=== PATIENT | female | born 1995 | race Caucasian/White ===

== ENCOUNTER 2021-03-03 13:13 | Inpatient (IN) | payer OTHER, BC ==
[2021-03-03] MEDS ORDERED: TERBUTALINE 1 MG/ML VIAL SQ PRN (13:56)
[2021-03-03] MEDS ORDERED: OXYTOCIN 10 UNIT/ML 1 ML VIAL IM PRN (13:56)
[2021-03-03] MEDS ORDERED: CARBOPROST TROMETHAMINE 250 MCG/ML 1 ML AMP IM PRN (13:56)
[2021-03-03] MEDS ORDERED: METHYLERGONOVINE 0.2 MG/ML 1 ML AMP IM PRN (13:56)
[2021-03-03] MEDS ORDERED: LIDOCAINE 0.5% (PF) 5 MG/ML (50 ML SDV) SQ PRN (13:56)
[2021-03-03] MEDS ORDERED: PENICILLIN G POTASSIUM 5,000,000 UNIT in DEXTROSE 5% IN WATER 100 ML IVPB STA ×2 (14:00)
[2021-03-03 14:11] LABS: Basophils % (A) 0 %; Eosinophils # (A) 0.2 k/uL (0-0.7); Eosinophils % (A) 2 %; HCT 37.6 % (34.0-46.0); HGB 12.8 gm/dL (11.4-16.0); Lymphocytes # (A) 2.1 k/uL (1.0-4.8); Lymphocytes % (A) 19 %; MCH 32.7 pg (25.0-35.0); Mean Platelet Volume 9.7; Monocytes # (A) 0.8 k/uL (0-1.0); Monocytes % (A) 7 %; Neutrophils # (A) 7.9 k/uL (1.3-7.7); Neutrophils % (A) 71 %; Platelet Count 196 k/uL (150-450); RBC 3.92 m/uL (3.80-5.40); RDW 13.7 % (11.5-15.5); WBC 11.2 k/uL (3.8-10.6)
[2021-03-03] MEDS: OXYTOCIN 30 UNITS/500 ML NS 30 UNIT in SALINE 1 500ML.BAG IV SCH (14:15)
[2021-03-03] MEDS: LACTATED RINGERS 1,000 ML IV SCH ×2 (14:21→22:14)
[2021-03-03] MEDS: PENICILLIN G POTASSIUM 2,500,000 UNIT in DEXTROSE 5% IN WATER 100 ML IVPB SCH ×4 (18:43→22:58)
[2021-03-03] MEDS ORDERED: fentaNYL (PF) 50 MCG/ML 5 ML AMP ONE (22:28)
[2021-03-03] MEDS ORDERED: SODIUM CHLORIDE 0.9% 100 ML BAG ONE (22:28)
[2021-03-03] MEDS ORDERED: ROPIVACAINE 5MG/ML 20ML VIAL ONE (22:28)
--- NOTE | 2021-03-04 01:46 | P.HPOB ---
History of Present Illness H&P Date: 03/04/21 Chief Complaint: My water broke at 10:30 this morning This is a 26-year-old female 1 para 0 EDC 03/03/2021 who presented at 40 weeks gestation with a history of her water breaking, clear fluid. She denied vaginal bleeding or uterine contractions. Fetus is been active throughout the . Past medical history significant for rheumatoid arthritis. Past surgical history eye surgery as a child. Current medications vitamins daily, Plaquenil 200 mg twice daily. ALLERGIES none known. Family history significant for hypertension, diabetes, myocardial infarction, pulmonary hypertension, thyroid issues. 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 history is significant for blood type A+, rubella status nonimmune. [place] strep cultures positive. Hepatitis B surface antigen, HIV testing, gonorrhea and chlamydia cultures, Pap smear, urine culture all negative. On exam patient is 5 foot 7 inches, 168 pounds, blood pressure 141/90. General physical exam is within normal limits. Cervix on admission is 1 cm dilated, 70% effaced, vertex presentation, posterior. heart tones reactive NST. Impression: 40 week intrauterine , spontaneous amniorrhexis, positive group B strep cultures. Plan: Penicillin G prophylaxis per hospital protocol. Oxytocin augmentation. Close maternal and surveillance. Anticipate normal spontaneous vaginal delivery. Review of Systems Constitutional: Reports as per HPI Past Medical History Past Medical History: Rheumatoid Arthritis (RA) History of Any Multi-Drug Resistant Organisms: None Reported Past Surgical History: No Surgical Hx Reported Past Anesthesia/Blood Transfusion Reactions: No Reported Reaction Past Psychological History: No Psychological Hx Reported Smoking Status: Never smoker - Past Family History Father Family Medical History: No Reported History Medications and Allergies Home Medications Medication Instructions Recorded Confirmed Type Aspirin 81 mg PO DAILY 03/03/21 03/03/21 History Hydroxychloroquine Sulfate 200 mg PO BID 03/03/21 03/03/21 History [Plaquenil] Pnv No.95/Ferrous Fum/Folic AC 1 each PO DAILY 03/03/21 03/03/21 History [ Multivitamin Tablet] Allergies Allergy/AdvReac Type Severity Reaction Status Date / Time No Known Allergies Allergy Verified 03/03/21 13:37 Exam Vital Signs Temp Pulse Resp BP Pulse Ox 03/03/21 14:35 97 F L 90 16 141/90 98 03/03/21 13:56 97 F L 90 16 141/90 98 Intake and Output 03/03/21 03/03/21 03/04/21 14:59 22:59 06:59 Output Total 1 Balance -1 Output: Emesis 1 Other: # Voids 1 3 Weight 76.204 kg See dictation under HPI please Results Result Diagrams: 03/03/21 14:01 Abnormal Lab Results - Last 24 Hours (Table) 03/03/21 Range/Units 14:01 WBC 11.2 H (3.8-10.6) k/uL Neutrophils # 7.9 H (1.3-7.7) k/uL Assessment and Plan Assessment: 40 week intrauterine , spontaneous amniorrhexis, positive group B strep cultures. Plan: Penicillin G prophylaxis per hospital protocol. Oxytocin augmentation per protocol. Close maternal and surveillance. Anticipate normal spontaneous vaginal delivery. Time with Patient: Less than 30
[2021-03-04] MEDS ORDERED: BENZOCAINE/MENTHOL SPRAY 1 GM/SPRAY AEROSOL TOPICAL PRN (01:48)
[2021-03-04] MEDS ORDERED: ZOLPIDEM 5 MG TAB PO PRN (01:48)
[2021-03-04] MEDS ORDERED: MEASLES-MUMPS-RUBELLA VACC/PF 12,500 UNIT/0.5 ML VIAL SQ ONE (01:48)
[2021-03-04] MEDS ORDERED: diphenhydrAMINE 25 MG CAP PO PRN (01:48)
[2021-03-04] MEDS ORDERED: SIMETHICONE 80 MG CHEWABLE PO PRN (01:48)
[2021-03-04] MEDS ORDERED: diphenhydrAMINE ELIXIR 25 MG/10 ML CUP PO PRN (01:48)
[2021-03-04] MEDS ORDERED: diphenhydrAMINE 50 MG/ML 1 ML VIAL IVP PRN ×2 (01:48)
[2021-03-04] MEDS ORDERED: HYDROCORTISONE 2.5% RECTAL CREAM 30 GM TUBE RECTAL PRN (01:48)
[2021-03-04] MEDS ORDERED: LANOLIN CREAM 5 GM TUBE TOPICAL PRN (01:48)
[2021-03-04] MEDS ORDERED: diphenhydrAMINE 50 MG CAP PO PRN (01:48)
--- NOTE | 2021-03-04 01:48 | P.PROBDLV ---
Vaginal Delivery Note - . Vaginal Delivery Note: This is a 26-year-old white female 1 para 0 EDC 03/03/2021 who presented at 40 weeks gestation. Patient complained of fluid leakage since 10:30 in the morning, clear fluid. She denied vaginal bleeding or uterine contractions. remarkable for positive group B strep cultures, rubella status nonimmune. Please see dictated history and physical for details. Penicillin G was started and titrated per hospital protocol, 3 doses given. Oxytocin was started and titrated per hospital protocol. Epidural was ultimately placed per her request. She progressed slowly but steadily through the first stage of labor and was judged to be completely dilated at 0100 hours. Perineal body was prepped and draped in usual sterile fashion. Infant's head delivered occiput anterior and restituted accordingly. There was a nuchal cord 1 that was reduced. The left or anterior shoulder was delivered from underneath the pubic symphysis at which time the oropharynx, nasopharynx, and external nares were all bulb suctioned. Patient was officially delivered of a liveborn female at 0113 hours. Umbilical cord was doubly clamped and ligated, she was handed to waiting nurses for evaluation where scores of 9 and 9 at one and 5 minutes respectively w ere given. Infant weighed 6 lbs. 12 oz. or 3070 g. Placenta delivered spontaneously with active management, it was inspected and noted to be intact with trivascular cord at 0115 hours. Uterus was massaged. Methergine was given 1 with immediate results. Careful inspection of the cervix, vagina, perineum, periurethral, and perirectal areas revealed a right labial laceration that was easily repaired in a running locking stitch of 3-0 repeat. All sponge needle and enhancement counts are correct at the end of the procedure. Patient and her family are allowed to begin the bonding experience in the LDR. Middle blood loss 350 mL
[2021-03-04] MEDS: IBUPROFEN 600 MG TAB PO SCH ×4 (02:57→20:08)
[2021-03-04] MEDS ORDERED: ONDANSETRON 4 MG/2 ML VIAL IVP STA (04:06)
[2021-03-04] MEDS: OXYTOCIN 30 UNITS/500 ML NS 30 UNIT in SALINE 1 500ML.BAG IV SCH (04:30)
[2021-03-04] MEDS: ACETAMINOPHEN TAB 325 MG TAB PO PRN (05:57)
[2021-03-04] MEDS: PENICILLIN G POTASSIUM 2,500,000 UNIT in DEXTROSE 5% IN WATER 100 ML IVPB SCH ×2 (07:38)
[2021-03-04] MEDS: HYDROXYCHLOROQUINE SULFATE 200 MG TAB PO SCH ×2 (08:24→20:08)
[2021-03-04] MEDS: SENNOSIDES-DOCUSATE SODIUM 1 EACH TAB PO SCH ×2 (08:24→20:09)
[2021-03-05] MEDS: ACETAMINOPHEN TAB 325 MG TAB PO PRN (01:11)
[2021-03-05] MEDS: IBUPROFEN 600 MG TAB PO SCH ×4 (02:59→21:47)
[2021-03-05] MEDS: SENNOSIDES-DOCUSATE SODIUM 1 EACH TAB PO SCH ×2 (07:38→21:47)
--- NOTE | 2021-03-05 08:46 | P.PNOBGVD ---
Subjective - Subjective Principal diagnosis: day #1 Interval history: She is a large right labial and vulvar hematoma that developed several hours after delivery. Has been monitored closely over the last 24 hours and appears stable. Patient reports improved mobility and discomfort throughout the night. The Minor catheter was left in through the night and ibuprofen and Tylenol are helping. She notes moderate lochia and bleeding from the site on the pad. She is breast-feeding successfully. Patient reports: Reports appetite normal, Reports pain well controlled, Denies voiding normally, Denies ambulating normally [place]: doing well, nursing well Objective - Latest Vital Signs Latest vital signs: Vital Signs Temp Pulse Resp BP 03/05/21 08:00 98 F 87 16 144/84 03/05/21 00:00 97.5 F L 86 16 141/82 03/04/21 16:00 97.5 F L 88 16 120/83 03/04/21 12:00 98.0 F 80 16 132/79 Intake and Output 03/04/21 03/05/21 03/05/21 22:59 06:59 14:59 Output Total 1000 950 Balance -1000 -950 Output: Urine 1000 950 Other: Voiding Method Indwelling Catheter Indwelling Catheter Indwelling Catheter - Exam Extremities: Present: normal. Absent: tenderness Abdomen: Present: normal appearance, soft Uterus: Present: normal, firm. Absent: tenderness Comments: Significant hematoma and ecchymoses involving the entire right labia and vulva tracking down into the perirectal area. This is firm but less tense than yesterday. Digital vaginal exam is normal with no evidence of hematoma tracking into the vaginal canal. A Minor catheter is in place on and there continues to be significant swelling of the anterior labia towards the midline. There is no active bleeding and suture line feels intact. 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 It is likely during the events of normal labor and delivery as well as repair of right labial laceration that these varicosities bled. This likely lead to the large hematoma. This is not actively expanding or bleeding. Pain management and observation is the plan at this point. We'll try to discontinue the Minor catheter this morning however it is possible she may not be able to comfortably spontaneously void with the amount of swelling in that case the catheter will be reinserted. I anticipate discharge home until tomorrow. Situation was again reviewed with the patient and her and all questions were answered. Current Visit: Yes Status: Acute Code(s): O71.7 - OBSTETRIC HEMATOMA OF PELVIS SNOMED Code(s): 428690414
[2021-03-05] MEDS: HYDROXYCHLOROQUINE SULFATE 200 MG TAB PO SCH (16:23)
[2021-03-06] MEDS: IBUPROFEN 600 MG TAB PO SCH (04:21)
[2021-03-06] MEDS: SENNOSIDES-DOCUSATE SODIUM 1 EACH TAB PO SCH (08:05)
--- NOTE | 2021-03-06 08:19 | P.DS ---
Providers Date of admission: 03/03/21 13:37 Expected date of discharge: 03/06/21 Attending physician: Deidra Macias Primary care physician: Stated None - Discharge Diagnosis(es) (1) Normal spontaneous vaginal delivery Current Visit: Yes Status: Acute (2) Obstetric labial laceration, delivered, current hospitalization Current Visit: Yes Status: Acute (3) Vulvar and perineal hematoma, Current Visit: Yes Status: Acute Hospital Course: This is a 26 year old 1 now para 1 woman who presented in spontaneous rupture of membranes and labor at 40 weeks gestation. She had had an uncomplicated . She presented in active labor and went on to have an unremarkable delivery of a live born female over a intact perineum with right labial laceration. Apgars were 9 at 1 minute and 9 at 5 minutes weighing 6 lbs. 12 oz. Several hours after delivery she was noted to have developed a large right labial and vulvar hematoma. Should a history of vulvar varicosities and this was thought to be the source. This was closely observed and the after initial development was no longer actively expanding or bleeding. She did have a Minor catheter placed throughout the rest of the day and night. By day #1 the hematoma was stable but times and extending towards the perineum and rectum posteriorly. The Minor catheter was removed and she was able to spontaneously void without difficulty. By day #2 she was feeling significantly better the hematoma appeared smaller on examination with last shift towards the midline. She was ambulating and voiding without difficulty and her pain was well-controlled with oral pain medications. Her lochia was significantly decreased. Of note she did have an elevated blood pressure reading on the morning of day #2 in the 140s over 90s. She denied any symptoms including headache, visual changes, nausea, vomiting, abdominal pain. She had minimal lower extremity swelling. Blood pressures were repeated and discharge is pending upon normalization. She was also instructed carefully on perineal care and will be seen in the next 5 days in the office to recheck the hematoma. Patient Condition at Discharge: Good Plan - Discharge Summary New Discharge Prescriptions: New Hydroxychloroquine Sulfate [Plaquenil] 200 mg PO BID tab Ibuprofen [Motrin] 600 mg PO Q6H tab Sennosides-Docusate Sodium [Senokot-S] 2 each PO BID@0800,2000 tab Discontinued Aspirin 81 mg PO DAILY No Action Pnv No.95/Ferrous Fum/Folic AC [ Multivitamin Tablet] 1 each PO DAILY Hydroxychloroquine Sulfate [Plaquenil] 200 mg PO BID Discharge Medication List Hydroxychloroquine Sulfate [Plaquenil] 200 mg PO BID 03/03/21 [History] Pnv No.95/Ferrous Fum/Folic AC [ Multivitamin Tablet] 1 each PO DAILY 03/03/21 [History] Hydroxychloroquine Sulfate [Plaquenil] 200 mg PO BID tab 03/06/21 [Rx] Ibuprofen [Motrin] 600 mg PO Q6H tab 03/06/21 [Rx] Sennosides-Docusate Sodium [Senokot-S] 2 each PO BID@0800,2000 tab 03/06/21 [Rx]
[2021-03-06 08:38] VITALS: PULSE 78; RESP 16; TEMP 98.2
[2021-03-06] MEDS: HYDROXYCHLOROQUINE SULFATE 200 MG TAB PO SCH (08:41)
[2021-03-06 09:24] VITALS: BP 146/82
== END 2021-03-06 10:20 | disposition home or self-care (01) | DRG 807 ==
LOC: FBPOP 13:13 → 4FBP 13:37
PROVIDERS: ADMIT Obstetrics & Gynecology; ATTEND Obstetrics & Gynecology
PROC: 3E0R3BZ Introduction of Anesthetic Agent into Spinal Canal, Percutaneous Approach (ICD-10-PCS; 2021-03-03)
PROC: 00HU33Z Insertion of Infusion Device into Spinal Canal, Percutaneous Approach (ICD-10-PCS; 2021-03-03)
PROC: 3E0134Z Introduction of Serum, Toxoid and Vaccine into Subcutaneous Tissue, Percutaneous Approach (ICD-10-PCS; principal; 2021-03-04)
PROC: 10E0XZZ Delivery of Products of Conception, External Approach (ICD-10-PCS; principal; 2021-03-04)
PROC: 0HQ9XZZ Repair Perineum Skin, External Approach (ICD-10-PCS; principal; 2021-03-04)
DX: O99.824 Streptococcus B carrier state complicating childbirth (principal); Z37.0 Single live birth; O69.81X0 Labor and delivery complicated by cord around neck, without compression, not applicable or unspecified; R03.0 Elevated blood-pressure reading, without diagnosis of hypertension; M06.9 Rheumatoid arthritis, unspecified; O70.0 First degree perineal laceration during delivery; Z3A.40 40 weeks gestation of pregnancy; O87.8 Other venous complications in the puerperium; O22.8X3 Other venous complications in pregnancy, third trimester; Z86.69 Personal history of other diseases of the nervous system and sense organs; Z83.3 Family history of diabetes mellitus; Z82.49 Family history of ischemic heart disease and other diseases of the circulatory system; Z83.49 Family history of other endocrine, nutritional and metabolic diseases; Z79.82 Long term (current) use of aspirin; Z79.899 Other long term (current) drug therapy; Z23 Encounter for immunization
CPT/HCPCS: 59025; 84112; 85025; 86850; 86900; 86901; 90707; 99213

== ENCOUNTER → 2022-02-17 | Outpatient (CLI) | payer BC ==
--- NOTE | 2022-02-17 15:02 | US ---
EXAMINATION TYPE: Transabdominal DATE OF EXAM: 02/17/2022 2:41 PM COMPARISON: NONE CLINICAL HISTORY: Z36.87 UNCERTAIN LMP. dates, no symptoms EXAM PERFORMED: Transabdominal (TA) EXAM MEASUREMENTS: GESTATIONAL AGE / DATING Physician Established: Not yet established Dates by LMP: (10 weeks/1 days) EDC: 09/14/2022 Dates by First Scan: No previous this is first scan Dates by Current Scan for: (10 weeks/0 days) EDC: 09/15/2022 MATERNAL ANATOMY Uterus: 12.1 x 9.2 x 6.6 cm Right Ovary: 3.0 x 2.2 x 1.7 cm Left Ovary: 2.4 x 1.6 x 1.2 cm Post CDS / Adnexa: no free fluid Presence of free fluid: no Presence of corpus luteal cyst: no Presence of subchorionic bleed: no GESTATION / SURVEY CRL: 3.1 cm (10 weeks/0 days) MSD: seen, not measured Yolk Sac (normal less than 6mm): 3.2 mm Heart Rate: 169 bpm Rhythm: Normal IUP: Viable IUP Age Appropriate Anatomy Limbs: Visualized Calvarium: Visualized Date of LMP: 12/08/2021, Beta HcG (if available): Not available at this time IMPRESSION: Single viable intrauterine .
== END | disposition home or self-care (01) ==
LOC: RADUSWWP 14:20
PROVIDERS: ATTEND Obstetrics & Gynecology
DX: Z36.87 Encounter for antenatal screening for uncertain dates (principal); Z3A.10 10 weeks gestation of pregnancy
CPT/HCPCS: 76801

== ENCOUNTER 2022-09-13 09:52 | Inpatient (IN) | payer BC ==
[2022-09-13] MEDS: LACTATED RINGERS 1,000 ML IV SCH ×2 (11:00→20:33)
[2022-09-13] MEDS ORDERED: LIDOCAINE 0.5% (PF) 5 MG/ML (50 ML SDV) SQ PRN (12:17)
[2022-09-13] MEDS ORDERED: TERBUTALINE 1 MG/ML VIAL SQ PRN (12:17)
[2022-09-13] MEDS ORDERED: OXYTOCIN 30 UNITS/500 ML NS 30 UNIT in SALINE 1 500ML.BAG IV SCH ×2 (12:30→13:45)
--- NOTE | 2022-09-13 12:41 | P.HPOB ---
History of Present Illness H&P Date: 09/13/22 Chief Complaint: Contractions, leakage of fluid Ms. Buchanan is a 27 y/o at 39 weeks, 6 days who presents with contractions every 5 minutes and leakage of clear fluid that began at 0800 this morning. She has a medical history significant for rheumatoid arthritis. The patient is GBS negative, Rh positive, HIV nonreactive, Hepatitis B negative, RPR non-reactive. 1 hr GTT was negative (81), and rubella immune. She has an obstetric history of 1 FTVD, 6#12 ounces, no complications. Past Medical History Past Medical History: Rheumatoid Arthritis (RA) History of Any Multi-Drug Resistant Organisms: None Reported Past Surgical History: No Surgical Hx Reported Additional Past Surgical History / Comment(s): eye surgery as child for lazy eye. Past Anesthesia/Blood Transfusion Reactions: No Reported Reaction Past Psychological History: No Psychological Hx Reported Smoking Status: Never smoker Past Alcohol Use History: None Reported Past Drug Use History: None Reported - Past Family History Father Family Medical History: No Reported History Mother Family Medical History: Hypertension, Rheumatoid Arthritis (RA) Medications and Allergies Home Medications Medication Instructions Recorded Confirmed Type Pnv No.95/Ferrous Fum/Folic AC 1 each PO DAILY 03/03/21 09/13/22 History [ Multivitamin Tablet] Hydroxychloroquine Sulfate 200 mg PO BID tab 03/06/21 09/13/22 Rx [Plaquenil] Aspirin [Adult Low Dose Aspirin EC] 81 mg PO DAILY 09/13/22 09/13/22 History Allergies Allergy/AdvReac Type Severity Reaction Status Date / Time No Known Allergies Allergy Verified 09/13/22 12:13 Exam Vital Signs Temp Pulse Resp BP 09/13/22 10:30 97.1 F L 88 18 133/78 Intake and Output 09/12/22 09/13/22 09/13/22 22:59 06:59 14:59 Other: Weight 69.853 kg Healthy appearing gravid woman. Breathing through contractions. Cervical exam is 7/90/-2. Amnisure is positive. Artificial rupture of forebag is performed at this time. Assessment and Plan Assessment: 27 y/o at 39.6 in labor with SROM at 0800 09/13. - Epidural prn - Oxytocin augmentation prn if contractions space out - GBS negative Time with Patient: Greater than 30
[2022-09-13] MEDS ORDERED: IBUPROFEN 600 MG TAB PO PRN (13:38)
[2022-09-13] MEDS ORDERED: BENZOCAINE/MENTHOL SPRAY 1 GM/SPRAY AEROSOL TOPICAL PRN (13:38)
[2022-09-13] MEDS ORDERED: LANOLIN CREAM 5 GM TUBE TOPICAL PRN (13:38)
[2022-09-13] MEDS ORDERED: diphenhydrAMINE 50 MG CAP PO PRN (13:38)
[2022-09-13] MEDS ORDERED: diphenhydrAMINE 50 MG/ML 1 ML VIAL IVP PRN ×2 (13:38)
[2022-09-13] MEDS ORDERED: HYDROCORTISONE 2.5% RECTAL CREAM 30 GM TUBE RECTAL PRN (13:38)
[2022-09-13] MEDS ORDERED: SIMETHICONE 80 MG CHEWABLE PO PRN (13:38)
[2022-09-13] MEDS ORDERED: ZOLPIDEM 5 MG TAB PO PRN (13:38)
[2022-09-13] MEDS ORDERED: diphenhydrAMINE 25 MG CAP PO PRN (13:38)
[2022-09-13] MEDS ORDERED: ACETAMINOPHEN TAB 325 MG TAB PO PRN (13:38)
--- NOTE | 2022-09-13 13:38 | P.PROBDLV ---
Vaginal Delivery Note - . Vaginal Delivery Note: DATE OF DELIVERY: 09/13/2022 This is a 42-year-old female, 2, para 1001, EDC 09/14/2022 at 39.4 weeks' gestation. Patient presented with spontaneous rupture of membranes which occurred on this morning at 0800 hours, clear fluid. Please see admitting H&P fo r details. is remarkable for group B strep culture is negative. Blood type Rh positive. One hour Glucola 81. Rubella status immune. Patient was admitted. Patient requested epidural, and this was placed without difficulty per Dr. Petty of the anesthesia staff. She progressed well through the first stage of labor. heart tones were reassuring throughout labor. Patient became completely dilated at 1242 hours and began the second stage of labor at that time. She pushed the infant quite successfully in the direct OA position. The infant delivered occiput anterior, and restituted accordingly. The right anterior shoulder was then easily delivered from underneath the pubic symphysis. The patient was officially delivered of a liveborn male at 121 hours. Umbilical cord was doubly clamped and ligated. was handed to waiting nurses for evaluation where scores of 8 and 9 at one and five minutes respectively were given. The placenta delivered spontaneously. It was inspected and noted to be intact with trivascular cord at 125 hours. Inspection of the cervix, vagina, perineum, periurethral and perirectal areas revealed no lacerations requiring repair. All sponge, needle, and instrument counts are correct at the end of this procedure. The patient was allowed to begin the bonding experience.
[2022-09-13 16:07] LABS: Basophils % (A) 1 %; Eosinophils # (A) 0.2 k/uL (0-0.7); Eosinophils % (A) 2 %; HGB 12.4 gm/dL (11.4-16.0); Lymphocytes # (A) 1.5 k/uL (1.0-4.8); Lymphocytes % (A) 16 %; MCH 31.9 pg (25.0-35.0); MCHC 34.5 g/dL (31.0-37.0); MCV 92.5 fL (80.0-100.0); Mean Platelet Volume 9.3; Monocytes # (A) 0.5 k/uL (0-1.0); Monocytes % (A) 6 %; Neutrophils # (A) 7.2 k/uL (1.3-7.7); Neutrophils % (A) 75 %; Platelet Count 184 k/uL (150-450); RDW 13.5 % (11.5-15.5); WBC 9.6 k/uL (3.8-10.6)
[2022-09-13] MEDS: SENNOSIDES-DOCUSATE SODIUM 1 EACH TAB PO SCH (20:19)
[2022-09-14] MEDS: HYDROXYCHLOROQUINE SULFATE 200 MG TAB PO SCH ×2 (02:24→12:09)
[2022-09-14] MEDS: SENNOSIDES-DOCUSATE SODIUM 1 EACH TAB PO SCH (08:10)
[2022-09-14] MEDS ORDERED: ROPIVACAINE 100 MG, fentaNYL (PF). 200 MCG in SODIUM CHLORIDE 0.9% 76 ML EPIDURAL ONE (08:25)
--- NOTE | 2022-09-14 10:16 | P.PNOBGVD ---
Subjective - Subjective Principal diagnosis: Normal Spontaenous Vaginal Delivery Interval history: Mrs. Buchanan is doing well this morning and had no acute events overnight. She has no complaints this morning. She reports minimal lochia, passing flatus, voiding without difficulty, ambulating, and eating/drinking without nausea or vomiting. She is her infant without difficulty. She denies chest pain, shortness of breathing, fevers, or chills overnight. She denies pain or swelling in the legs. Patient reports: Reports appetite normal, Reports voiding normally, Reports pain well controlled, Reports ambulating normally : doing well, nursing well Objective - Latest Vital Signs Latest vital signs: Vital Signs Temp Pulse Resp BP Pulse Ox 09/14/22 00:00 98.2 F 72 16 130/83 96 09/13/22 20:00 98.2 F 84 16 125/85 98 09/13/22 16:00 18 09/13/22 15:34 97.0 F L 85 18 118/74 99 09/13/22 15:04 97.2 F L 88 18 126/74 99 09/13/22 14:34 82 18 131/72 99 09/13/22 14:19 85 18 128/59 99 09/13/22 14:04 96.7 F L 90 18 155/71 99 09/13/22 13:43 97.0 F L 72 18 117/58 99 09/13/22 13:34 97.1 F L 91 18 121/60 99 Intake and Output 09/13/22 09/14/22 09/14/22 23:59 06:59 14:59 Other: Voiding Method # Voids - Exam Extremities: Present: normal Abdomen: Present: normal appearance, soft Uterus: Present: normal, firm Assessment and Plan Assessment: 27 y/o now PPD#1 s/p at 39w6d 1. . Patient is meeting all milestones appropriately. 2. Viable Male Infant. [place] circumcision completed this morning. discharged by pediatricians. 3. Contraception. Discussed recommended interpregnancy interval of no less than 12 months to avoid risks such as delivery and low weight. Recommend contraception, will discuss in further detail at [address] Macias. 4. restrictions. Recommend 6 weeks of pelvic rest. Activity as tolerated. Plan: Discharge to home with restrictions as above.
[2022-09-14 12:08] VITALS: RESP 18
[2022-09-14] MEDS: LACTATED RINGERS 1,000 ML IV SCH ×2 (12:09→14:32)
[2022-09-14 13:30] LABS: Basophils % (A) 0 %; Eosinophils # (A) 0.3 k/uL (0-0.7); Eosinophils % (A) 2 %; HCT 36.9 % (34.0-46.0); HGB 12.6 gm/dL (11.4-16.0); Lymphocytes % (A) 16 %; MCH 31.4 pg (25.0-35.0); MCV 92.4 fL (80.0-100.0); Mean Platelet Volume 9.9; Monocytes # (A) 0.6 k/uL (0-1.0); Monocytes % (A) 5 %; Neutrophils # (A) 9.2 k/uL (1.3-7.7); Neutrophils % (A) 75 %; Platelet Count 191 k/uL (150-450); RBC 3.99 m/uL (3.80-5.40); WBC 12.2 k/uL (3.8-10.6)
[2022-09-14 13:55] VITALS: BP 129/85; PULSE 76; TEMP 98.4
== END 2022-09-14 14:10 | disposition home or self-care (01) | DRG 807 ==
LOC: FBPOP 09:52 → 4FBP 10:11
PROVIDERS: ADMIT Obstetrics & Gynecology; ATTEND Obstetrics & Gynecology
PROC: 10E0XZZ Delivery of Products of Conception, External Approach (ICD-10-PCS; principal; 2022-09-13)
DX: O99.892 Other specified diseases and conditions complicating childbirth (principal); Z37.0 Single live birth; M06.9 Rheumatoid arthritis, unspecified; Z28.310 Unvaccinated for COVID-19; Z3A.39 39 weeks gestation of pregnancy; Z79.82 Long term (current) use of aspirin; Z79.899 Other long term (current) drug therapy
CPT/HCPCS: 85025; 86850; 86900; 86901